=== PATIENT | female | born 1965 ===

== ENCOUNTER → 2018-01-18 | Outpatient (REF) | payer OTHER ==
[~2018-01-18] MED LIST: ESCI20TA38 PO; LEVO1TAB16 PO; LISI-374 PO; ZOLP-1 PO
== END ==
LOC: ZZPBJ 12:00
PROVIDERS: ATTEND Orthopaedic Surgery Hand Surgery
DX: G56.81 Other specified mononeuropathies of right upper limb (principal)
CPT/HCPCS: 88304